=== PATIENT | female | born 1940 | race Caucasian/White ===

== ENCOUNTER → 2017-07-29 | Outpatient (CLI) | payer SELFPAY ==
[2016-10-28 10:07] VITALS: BP 120/70
--- NOTE | 2017-08-01 17:36 | CT ---
HISTORY: Screening, positive family history, hypertension Cardiac calcium scoring. Technique: Multiple axial images of the chest were obtained on a [address] from the aortic arch to the base of the heart with noncontrast prospective gating.AEC was utilized. Findings: A total calcium score of 233 is observed. The score results in moderate likelihood of coronary event s given the age and sex matched cohort analysis. There is definite, at least moderate, atherosclerot ic plaque with mild Coronary artery disease highly likely and significant narrowings possible. The pa tient is between the 50 and 75th percentile for age and sex. There are incidental multiple bilateral pulmonary nodules with scattered ground-glass opacities which could reflect atypical bronchopneumonia but for which clinical correlation and follow up are recomme nded. If there are clinical signs and symptoms of pneumonia, a trial of therapy with follow up imagin g in 3 months is recommended. Correlation with any previous history of malignancy is also recommended . If there are no clinical signs and symptoms of pneumonia, correlation with dedicated CT chest witho ut contrast is recommended when clinically feasible. IMPRESSION: 1. Elevated Coronary calcium score as above. 2. Incidental bilateral pulmonary nodules also detailed above. Reported By:
== END ==
LOC: RAD 14:10
PROVIDERS: ATTEND Nurse Practitioner Family
DX: Z13.6 Encounter for screening for cardiovascular disorders (principal)